=== PATIENT | male | born 1990 | race Hispanic/Latino ===

== ENCOUNTER 2024-11-15 20:35 | Emergency (ER) | payer OTHER ==
[~2024-11-15] VITALS: Ht 182.9 cm; Wt 79.4 kg
[2024-11-15 20:36] VITALS: BP 128/87; PULSE 67; RESP 20; TEMP 98.2
--- NOTE | 2024-11-15 22:08 | NUR ---
SPOKE WITH ADARSH AT [facility]. SHE RECOMMENDS IRRIGATION FOR 15 MINS THAN ASSESS FOR ABRASION. IF POSITIVE FOR ABRASION ANTIBIOTICS WILL NEED TO BE PRESCRIBED. OBTAINED.
[2024-11-15] MEDS: FLUORESCEIN SODIUM 1 STRIP STRIP ONE (23:00)
[2024-11-15] MEDS: TETRACAINE HCL 0.5% 4 ML OPHTH SOLN OP STA (23:00)
[2024-11-15] MEDS ORDERED: ERYT1OIN7 OP (23:09)
--- NOTE | 2024-11-15 23:09 | ERN ---
ED Note History of Present Illness Stated Complaint: DISH DETERGENT IN EYES Chief Complaint: Eye Problems Time Seen by MD: 20:41 Time Seen by Midlevel: 20:44 Dictation: 34-YEAR-OLD MALE COMING IN FROM WORK WHERE HE GOT JUST WASHER SOAP IN HIS RIGHT EYE. PATIENT STATES HE IRRIGATED HIS EYES 20 MINUTES PRIOR TO COMING HERE. DENIES ANY VISION LOSS OR VISION CHANGES COMPLAINING OF JUST REDNESS AND TEARING. Allergies: Coded Allergies: No Known Allergies (Unverified Allergy, Unknown, 11/15/24) Past Medical History Past Medical History: No Pertinent History Surgical History: None Review of System Dictation CONSTITUTIONAL: NEGATIVE FOR FEVER,CHILLS, AND WEIGHT LOSS EYES: COMPLAINING OF RIGHT EYE PAIN AND REDNESS AND DISCHARGE ENT: NEGATIVE FOR INJURY,PAIN OR SWELLING CARDIOVASCULAR: NEGATIVE FOR CHEST PAIN, PALPITATIONS, AND EDEMA RESPIRATORY: NEGATIVE FOR SHORTNESS OF BREATH, COUGH, AND WHEEZING, ABDOMEN/GI: NEGATIVE FOR ABDOMINAL PAIN, NAUSEA, VOMITING, DIARRHEA, AND CONSTIPATION BACK: NEGATIVE FOR INJURY AND PAIN : NEGATIVE FOR INJURY, BLEEDING AND DISCHARGE MS/EXTREMITY: NEGATIVE FOR INJURY AND DEFORMITY SKIN: NEGATIVE FOR RASH, AND DISCOLORATION NEURO: NEGATIVE FOR HEADACHE, WEAKNESS, NUMBNESS, TINGLING, AND SEIZURE PSYCH: NEGATIVE FOR SUICIDE IDEATION, HOMICIDAL IDEATION, AND HALLUCINATIONS Review of Systems: was completed Initial Vital Sign VS Vital Signs Date Time Temp Pulse Resp B/P (MAP) Pulse Ox O2 Delivery O2 Flow Rate FiO2 11/15/24 20:36 98.2 67 20 128/87 99 Room Air Physical Exam Dictation GENERAL: AWAKE, ALERT, NAD HEAD/FACE: NORMOCEPHALIC, ATRAUMATIC EYES: PERRL, EOMI, VISION AT BASELINE, ON FLUORESCEIN STAIN THERE WAS POSSIBLE CORNEAL ABRASION NOTED, ALONG WITH A STRINGY LIKE MUCUS NOTED ALONG THE WATER LINE ENT: ORAL CAVITY CLEAR, TMS CLEAR, NO SIGNS OF INFECTION NECK: TRACHEA MIDLINE, SUPPLE, NO NUCHAL RIGIDITY CARDIOVASCULAR: RRR, NORMAL S1/S2, NO MRGS, NO JVD RESPIRATORY: CTAB, NO RESPIRATORY DISTRESS, NO RALES OR WHEEZES ABDOMEN: SOFT, NON-TENDER, NON-DISTENDED, NORMAL BOWEL SOUNDS, NO GUARDING OR REBOUND. SKIN: WARM, DRY, NORMAL TURGOR, NO RASH MS/EXTREMITY: PULSES EQUAL, NO CYANOSIS, NEUROVASCULAR INTACT, FROM NEURO: COAX4, GCS 15, STRENGTH 5/5, CN 2-12 INTACT, NORMAL CEREBELLAR EXAM, NORMAL GAIT, PSYCH: NORMAL BEHAVIOR, MOOD, AND AFFECT NORMAL ED Course ED Course Orders Procedure Category Date Status Time Tetracaine Hcl PHA 11/15/24 Complete (Pontocaine 0.5% 22:17 Fluorescein Sodium PHA 11/15/24 Complete ([id number] At) 22:32 Current Medications Medications (Trade) Dose Ordered Sig/Bee Route PRN Reason Start Time Stop Time Status Last Admin Dose Admin Fluorescein Sodium (Htqrg-B-Newbo At) 1 strip STK-MED ONCE .ROUTE 11/15/24 22:32 11/15/24 22:33 DC Tetracaine HCl (Pontocaine 0.5% Ophth Soln) 1 OR 2 DROPS ONCE STAT OP 11/15/24 22:17 11/15/24 22:20 DC Vital Signs Date Time Temp Pulse Resp B/P (MAP) Pulse Ox O2 Delivery O2 Flow Rate FiO2 11/15/24 20:36 98.2 67 20 128/87 99 Room Air Medical Decision Making MDM MDM: 34-YEAR-OLD MALE COMING IN FROM WORK WHERE HE GOT JUST WASHER SOAP IN HIS RIGHT EYE. PATIENT STATES HE IRRIGATED HIS EYES 20 MINUTES PRIOR TO COMING HERE. DENIES ANY VISION LOSS OR VISION CHANGES COMPLAINING OF JUST REDNESS AND TEARING. AFTER TETRACAINE AND REMOVING STRING LIKE SUBSTANCES FROM THE WATER LINE PATIENT STATES FEELS BETTER. POSSIBLE CORNEAL ABRASION ON EYE EXAM. WE WILL PRESCRIBE PATIENT ANTIBIOTICS AND HAVE PATIENT FOLLOW UP OUTPATIENT WITH OPHTHALMOLOGY. POISON CONTROL WAS CALLED BY PRIMARY NURSE RECOMMENDED ANTIBIOTICS IF THERE WAS A CORNEAL ABRASION. DIFFERENTIAL DIAGNOSIS: CORNEAL ABRASION, CORNEAL ULCERATION, FOREIGN BODY IN EYE RATIONALE: TESTS CONSIDERED AND ORDERED SECONDARY TO SHARED DECISION MAKING I NCLUDE: PREVIOUS OUTSIDE RECORDS REVIEWED: OLD ER VISITS. RISK OF COMPLICATION AND/OR MORBIDITY OR MORTALITY OF PATIENT MANAGEMENT: NONE MEDICATIONS-PER MEDICATION RECONCILIATION NEED FOR HOSPITALIZATION: PATIENT DOES NOT MEET CRITERIA FOR HOSPITALIZATION. NEED FOR EMERGENCY MAJOR/MINOR SURGERY: NO THERE ARE NO SOCIAL CONCERNS WITH THIS PATIENT. PRESCRIPTION DRUG MANAGEMENT PRESCRIPTIONS WILL INCLUDE SYMPTOMATIC CARE PATIENT'S PRIOR EXTERNAL MEDICAL RECORDS FROM OTHER ER VISITS WERE REVIEWED BY ME INDICATED. PRIOR TESTING AND RESULTS FROM PREVIOUS VISITS WERE REVIEWED. PRIOR TESTS WERE TAKEN INTO ACCOUNT WITH MEDICAL DECISION MAKING AND RESOURCE UTILIZATION, INDEPENDENT HISTORIAN/HISTORIANS WERE USED TO OBTAIN COMPLETE MEDICAL HISTORY. I INDEPENDENTLY INTERPRETED THE TEST THAT WERE PERFORMED, RESULTS WERE REVIEWED BY ME AND CONSIDERED FINDINGS ON RADIOLOGY IF ORDERED. MEDICAL MANAGEMENT AND EXAMINATION INTERPRETATION DISCUSSIONS WERE HAD BY ME WITH OTHER QUALIFIED HEALTHCARE PROFESSIONALS INDICATED FOR THE PATIENT'S CARE. DX & DISP Disposition: Discharge Departure Impression: Primary Impression: Corneal abrasion, right Condition: Stable Scripts Erythromycin Base (Erythromycin) 5 Mg/Gram (0.5 %) Oint...g. 1 APPL OP QID for 5 Days, #7 GM 0 Refills apply 1 cm ribbon into the lower conjunctival sac Prov: LACIE SINGH CONTROL INTEGRATION ENGINEER 11/15/24 Additional Instructions: PLEASE FOLLOW UP WITH [facility] IN 1-2 DAYS, IF YOU HAVE ANY WORSENING SYMPTOMS RETURN TO ER. Referrals: SELF,REFERRAL (PCP) Time of Disposition: 23:06 I have reviewed the case, and I agree with, Diagnosis and Plan LACIE SINGH NP November 15, 2024 23:09
== END 2024-11-16 00:11 | disposition home or self-care (01) ==
LOC: EDH 20:35
DX: S05.01XA Injury of conjunctiva and corneal abrasion without foreign body, right eye, initial encounter (principal); X58.XXXA Exposure to other specified factors, initial encounter; Y93.89 Activity, other specified; Y92.89 Other specified places as the place of occurrence of the external cause; Y99.8 Other external cause status
CPT/HCPCS: 99283